=== PATIENT | female | born 1935 | race Caucasian/White ===

== ENCOUNTER 2017-08-23 09:23 | Outpatient (RCR) | payer SELFPAY | END 2017-08-25 | disposition home or self-care (01) | LOC: CR3 09:23 | PROVIDERS: ATTEND Physician Assistant | DX: Z29.8 Encounter for other specified prophylactic measures (principal) ==

== ENCOUNTER 2017-09-23 06:00 | Outpatient (RCR) | payer MEDICARE | END 2017-09-25 | disposition home or self-care (01) | LOC: CR3 06:00 | PROVIDERS: ATTEND Physician Assistant | DX: Z29.8 Encounter for other specified prophylactic measures (principal) ==

== ENCOUNTER 2017-10-11 10:46 | Outpatient (RCR) | payer MEDICARE ==
[2017-10-16] MEDS ORDERED: ASPI-586 PO (21:11)
[2017-10-16] MEDS ORDERED: LOSA100T28 PO (21:11)
[2017-10-17] MEDS ORDERED: APIX5TAB PO (10:06)
[2017-10-18] MEDS ORDERED: DILT120C63 PO (08:25)
[2017-10-18] MEDS ORDERED: FURO20TA4 PO (10:08)
[2017-10-18] MEDS ORDERED: VIT1TABL82 PO (10:12)
[2017-10-18] MEDS ORDERED: NFBIOT1000 PO (10:12)
[2017-10-18] MEDS ORDERED: CALC-654 PO (10:12)
[2017-10-18] MEDS ORDERED: OMG1KC PO (10:12)
[2017-10-18] MEDS ORDERED: MAGN400T39 PO (10:12)
== END 2017-10-27 | disposition home or self-care (01) ==
LOC: CR3 10:46
PROVIDERS: ATTEND Physician Assistant
DX: Z29.8 Encounter for other specified prophylactic measures (principal)

== ENCOUNTER 2017-10-16 17:30 | Inpatient (IN) | payer MEDICARE ==
[~2017-10-16] VITALS: Ht 160 cm; Wt 66.7 kg
[2017-10-16] VITALS (14 sets, daily range): BP systolic 132–201; BP diastolic 56–106
[2017-10-16] MEDS ORDERED: NS IV 1000 ML 1,000 ML ONE (17:45)
[2017-10-16] MEDS ORDERED: ASPIRIN 81 MG CHEW (CHILDREN'S ASA) ONE (17:45)
[2017-10-16 17:56] LABS: BASOPHILS # (AUTO) 0.1 10^3/uL (0.0-0.1); BASOPHILS % (AUTO) 1 % (0-10); EOSINOPHILS # (AUTO) 0.2 10^3/uL (0.0-0.3); EOSINOPHILS % (AUTO) 3 % (0-10); HEMATOCRIT 41 % (35-52); HEMOGLOBIN 13.7 G/DL (11.5-16.0); LYMPHOCYTES # (AUTO) 3.4 X 10^3 (1.0-4.0); LYMPHOCYTES % (AUTO) 37 % (12-44); MEAN CORPUSCULAR HEMOGLOBIN 30 PG (25-34); MEAN CORPUSCULAR HGB CONC 33 G/DL (32-36); MEAN CORPUSCULAR VOLUME 89 FL (80-99); MEAN PLATELET VOLUME 10.3 FL (7.4-10.4); MONOCYTES # (AUTO) 1.6 X 10^3 (0.0-1.0); MONOCYTES % (AUTO) 17 % (0-12); NEUTROPHILS % (AUTO) 43 % (42-75); PLATELET COUNT 301 10^3/uL (130-400); RED BLOOD COUNT 4.59 10^6/uL (4.35-5.85); RED CELL DISTRIBUTION WIDTH 14.4 % (10.0-14.5); WHITE BLOOD COUNT 9.3 10^3/uL (4.3-11.0)
--- NOTE | 2017-10-16 17:57 | ED Cardiac General ---
History of Present Illness General Chief Complaint: Cardiac/General Problems Stated Complaint: HEART RATE RAPID Source: patient Exam Limitations: no limitations History of Present Illness Date Seen by Provider: Oct 16, 2017 Time Seen by Provider: 17:46 Initial Comments Patient presents to the ER with a rapid heart rate no history of atrial fibrillation and not on blood thinners. She's not having any chest pain but more shortness of breath. This started this morning and so she sat down to rest but it didn't go away. She called her neighbor came over and checked her blood pressure and heart rate and found her heart rate to be high in the 1:30 to 140 range and recommend she go to the ER. They came by private conveyance. She does not have a history of coronary artery disease. She says her doctor Dr. Mendez , cardiology at [facility] has insisted she get a pacemaker but she is resistant doing this because she doesn't want to do the procedure. No history of stents, CABG, coronary artery disease. She is taking her other medications routinely. Allergies and Home Medications Allergies Coded Allergies: No Known Drug Allergies (Unverified , 10/16/17) Patient Home Medication List Home Medication List Reviewed: Yes Review of Systems Constitutional: No chills, No diaphoresis EENTM: No Blurred Vision, No Double Vision Respiratory: Denies Cough, Denies Shortness of Air Cardiovascular: Denies Chest Pain, Denies Edema; Irregular Heart Rate, Palpitations; Denies Syncope Gastrointestinal: Denies Abdomen Distended, Denies Abdominal Pain, Denies Constipated, Denies Diarrhea, Denies Nausea Genitourinary: Denies Burning, Denies Discharge Musculoskeletal: No back pain, No joint pain Skin: No pruritus, No rash Psychiatric/Neurological: Denies Headache, Denies Numbness, Denies Paresthesia Past Mkuxqnk-Cbtnwm-Whtzvv Hx Patient Social History Alcohol Use: Denies Use Recreational Drug Use: No Smoking Status: Never a Smoker Recent Foreign Travel: No Contact w/Someone Who Travel: No Physical Exam Vital Signs Capillary Refill : Height, Weight, BMI Height: ', " Weight: lbs oz, kg Method: ,BMI General Appearance: WD/WN, Mild Distress HEENT: PERRL/EOMI, Normal ENT Inspection, Pharynx Normal, Moist Mucous Membranes Neck: Full Range of Motion, Non Tender, Supple Respiratory: Chest Non Tender, Lungs Clear, Normal Breath Sounds, No Accessory Muscle Use, No Respiratory Distress Cardiovascular: No Edema, No Murmur, Normal Peripheral Pulses, Irregularly Irregular Gastrointestinal: Non Tender, Soft Neurologic/Psychiatric: Alert, Oriented x3 Skin: Normal Color, Warm/Dry Progress/Results/Core Measures Results/Orders Lab Results Laboratory Tests Test 10/16/17 17:42 Range/Units White Blood Count 9.3 4.3-11.0 10^3/uL Red Blood Count 4.59 4.35-5.85 10^6/uL Hemoglobin 13.7 11.5-16.0 G/DL Hematocrit 41 35-52 % Mean Corpuscular Volume 89 80-99 FL Mean Corpuscular Hemoglobin 30 25-34 PG Mean Corpuscular Hemoglobin Concent 33 32-36 G/DL Red Cell Distribution Width 14.4 10.0-14.5 % Platelet Count 301 130-400 10^3/uL Mean Platelet Volume 10.3 7.4-10.4 FL Neutrophils (%) (Auto) 43 42-75 % Lymphocytes (%) (Auto) 37 12-44 % Monocytes (%) (Auto) 17 H 0-12 % Eosinophils (%) (Auto) 3 0-10 % Basophils (%) (Auto) 1 0-10 % Neutrophils # (Auto) 4.0 1.8-7.8 X 10^3 Lymphocytes # (Auto) 3.4 1.0-4.0 X 10^3 Monocytes # (Auto) 1.6 H 0.0-1.0 X 10^3 Eosinophils # (Auto) 0.2 0.0-0.3 10^3/uL Basophils # (Auto) 0.1 0.0-0.1 10^3/uL Prothrombin Time 13.7 12.2-14.7 SEC INR Comment 1.1 0.8-1.4 Activated Partial Thromboplast Time 28 24-35 SEC Sodium Level 143 135-145 MMOL/L Potassium Level 4.0 3.6-5.0 MMOL/L Chloride Level 111 H 98-107 MMOL/L Carbon Dioxide Level 23 21-32 MMOL/L Anion Gap 9 5-14 MMOL/L Blood Urea Nitrogen 16 7-18 MG/DL Creatinine 1.16 0.60-1.30 MG/DL Estimat Glomerular Filtration Rate 45 BUN/Creatinine Ratio 14 Glucose Level 99 70-105 MG/DL Calcium Level 9.6 8.5-10.1 MG/DL Magnesium Level 2.1 1.8-2.4 MG/DL Total Bilirubin 0.5 0.1-1.0 MG/DL Aspartate Amino Transf (AST/SGOT) 22 5-34 U/L Alanine Aminotransferase (ALT/SGPT) 20 0-55 U/L Alkaline Phosphatase 50 40-136 U/L Myoglobin 110.9 H 10.0-92.0 NG/ML Troponin I < 0.30 <0.30 NG/ML B-Type Natriuretic Peptide 308.8 H <100.0 PG/ML Total Protein 6.9 6.4-8.2 GM/DL Albumin 3.9 3.2-4.5 GM/DL My Orders Orders - PIPO NOLAN Cbc With Automated Diff (10/16/17 17:45) Magnesium (10/16/17 17:45) Chest 1 View, Ap/Pa Only (10/16/17 17:45) Cardiac Profile 1 (10/16/17 17:45) Comprehensive Metabolic Panel (10/16/17 17:45) Myoglobin Serum (10/16/17 17:45) Protime With Inr (10/16/17 17:45) Partial Thromboplastin Time (10/16/17 17:45) O2 (10/16/17 17:45) Monitor-Rhythm Ecg Trace Only (10/16/17 17:45) Lipid Panel (10/17/17 06:00) Saline Lock/Iv-Start (10/16/17 17:45) BNP (10/16/17 17:45) Saline Lock/Iv-Start (10/16/17 17:45) Aspirin Chewable Tablet (Baby Aspirin Ch (10/16/17 17:45) Ns Iv 1000 Ml (Sodium Chloride 0.9%) (10/16/17 17:45) Amiodarone For Bolus (Cordarone Bolus) (10/16/17 18:00) Diltiazem Injection (Cardizem Injection) (10/16/17 18:00) Amiodarone For Bolus (Cordarone Bolus) (10/16/17 18:02) D5w 100 Ml Ivpb (Dextrose 5% Water Iv So (10/16/17 18:04) Amiodarone Injection (Cordarone Injectio (10/16/17 18:30) D5w 100 Ml Ivpb (De... W/Diltiazem Injec (10/16/17 18:30) Medications Given in ED Current Medications Medications Dose Ordered Sig/Maude Route Start Time Stop Time Status Last Admin Dose Admin Amiodarone HCl 150 mg/Dextrose 103 ml @ 600 mls/hr ONCE ONCE IV 10/16/17 18:00 10/16/17 18:10 DC 10/16/17 18:12 600 MLS/HR Aspirin 81 mg STK-MED ONCE .ROUTE 10/16/17 17:45 10/16/17 17:47 DC 10/16/17 17:47 81 MG Diltiazem HCl 10 mg ONCE ONCE IVP 10/16/17 18:00 10/16/17 18:01 DC 10/16/17 18:08 10 MG Sodium Chloride 1,000 ml @ ud STK-MED ONCE .ROUTE 10/16/17 17:45 10/16/17 17:47 DC 10/16/17 17:46 1,000 MLS/HR Progress Progress Note : Time: 18:23 Progress Note Suspect new onset A. fib with rapid ventricular response and the widened QRS would be secondary to her stated known left bundle-branch block. We'll consult with cardiology and form a plan. The patient stable with a good blood pressure at this time no chest pain. Initial ECG Impression Date: Oct 16, 2017 Initial ECG Impression Time: 17:39 Initial ECG Rate: 131 Initial ECG Rhythm: A Fib/Flutter Initial ECG Intervals: QT (520) Initial ECG Impression: Atrial Fibrillation w/RVR Initial ECG Comparisson: No Previous ECG Available Comment Left bundle branch block with what we suspect is atrial fibrillation with rapid ventricular response. EKG : EKG Time: 18:28 Rate: 108 Rhythm: A Fib/Flutter Intervals: QT (531) ECG Comparisson: Changed ECG Impression: Atrial Fibrillation Comment Atrial flutter with left bundle branch block. Diagnostic Imaging Diagonstic Imaging: Xray Plain Films/CT/US/NM/MRI: chest (1v) Comments NAME: [facility] REC#: [id number] PHYSICIAN: PIPO NOLAN MD CC: RAÚL BENITEZ MD; PIPO NOLAN Page 1 of 1 RADIOLOGY REPORT VIA [facility], [facility]. [place], [place] CC: RAÚL BENITEZ MD; PIPO NOLAN Page 1 of 1 RADIOLOGY REPORT NAME: [facility] REC#: [id number] PT STATUS: REG ER : 1935 PHYSICIAN: PIPO NOLAN MD ADMIT DATE: 10/16/17/ER Signed Date of Exam: 10/16/17 CHEST 1 VIEW, AP/PA ONLY INDICATION: Hypertension. EXAMINATION: PA chest was obtained at 5:59 p.m. FINDINGS: Heart is mildly enlarged. There is mild central vascular prominence. There are chronic appearing increased basilar markings. There is no acute consolidation, pneumothorax or pleural fluid. IMPRESSION: Mild cardiomegaly and central vascular prominence. Chronic appearing increased basilar markings. No acute consolidation or pleural fluid. Dictated by: Dictated on workstation # [id number] Dict: 10/16/171804 Trans: 10/16/171807 Interpreted by: RAÚL BENITEZ MD Electronically signed by: RAÚL BENITEZ MD 10/16/171807 Reviewed: Reviewed by Me Consults : Consulting Physician: Chris KC MD Consults Notes Discussed case EKG and findings and he agrees this is probably a new onset atrial fibrillation with rapid ventricular response and that we should do amiodarone bolus and a bolus of Cardizem. Then start him on the drips for both and if the patient's rate slows down and they are still a wide QRS than this is most likely atrial fibrillation with rapid ventricular response. If They do not slow down and we should suspect a V. tach. He wants us to have paddles ready case the patient becomes unstable. They be happy to consult if will have medicine admit the patient. He also recommends Eliquis. Critical Care Note Critical Care Start Time: 17:30 Stop Time: 18:30 Total Time (minutes) 60 Progress Patient was brought and with no history of atrial fibrillation or suggestion but she does have a rapid rate in the 05/12/39 range that your regular and with wide QRS complexes. We also with cardiology to make sure that the left bundle branch block would be reasonable explanation for the wide QRS complexes and they agreed and gave us a plan to start amiodarone drip and Cardizem drip after giving him boluses of each appropriately. We then developed a plan that we would keep the patient and the ER until he got her down her reasonable rate in the 80s to 90s heart rate before sending her up to the ICU on the drips. Departure Communication (Admissions) Time/Spoke to Admitting Phy: 18:56 Dr. Luther discussed case lab EKG imaging and findings and he'll see the patient. Time/Spoke to Consulting Phy: 18:00 Discussed case lab EKG imaging with Dr. Kc and he'll see the patient. He recommends in addition to adjusting her Cardizem up he would also given a one- time dose of Lasix 20 mg. Impression Primary Impression: Atrial fibrillation with rapid ventricular response Disposition: ADMITTED INPATIENT Condition: Improved Admissions Decision to Admit Reason: Admit from ER (General) Decision to Admit/Date: Oct 16, 2017 Time/Decision to Admit Time: 18:55 Departure-Patient Inst. Referrals: NO,LOCAL PHYSICIAN (PCP/Family) Primary Care Physician PIPO NOLAN Oct 16, 2017 17:57
[2017-10-16] MEDS ORDERED: DILTIAZEM 25 MG/5 ML INJ (CARDIZEM) VIAL IVP ONE (18:00)
[2017-10-16] MEDS ORDERED: AMIODARONE FOR BOLUS 150 MG in D5W 100 ML IVPB 100 ML IV ONE (18:00)
[2017-10-16] MEDS ORDERED: AMIODARONE 150 MG/3 ML (CORDARONE) AMP IV ONE (18:02)
[2017-10-16] MEDS ORDERED: D5W 100 ML IVPB 100 ML IV ONE (18:04)
--- NOTE | 2017-10-16 18:08 | Diagnostic Imaging Report ---
INDICATION: Hypertension. EXAMINATION: PA chest was obtained at 5:59 p.m. FINDINGS: Heart is mildly enlarged. There is mild central vascular prominence. There are chronic appearing increased basilar markings. There is no acute consolidation, pneumothorax or pleural fluid. IMPRESSION: Mild cardiomegaly and central vascular prominence. Chronic appearing increased basilar markings. No acute consolidation or pleural fluid. Dictated by: Dictated on workstation # [id number]
[2017-10-16 18:14] LABS: ALANINE AMINOTRANSFERASE 20 U/L (0-55); ALBUMIN 3.9 GM/DL (3.2-4.5); ALKALINE PHOSPHATASE 50 U/L (40-136); BILIRUBIN,TOTAL 0.5 MG/DL (0.1-1.0); BUN/CREATININE RATIO 14; CALCIUM 9.6 MG/DL (8.5-10.1); CARBON DIOXIDE 23 MMOL/L (21-32); CHLORIDE 111 MMOL/L (98-107); CREATININE SERUM 1.16 MG/DL (0.60-1.30); GFR ESTIMATED 45; GLUCOSE 99 MG/DL (70-105); MAGNESIUM 2.1 MG/DL (1.8-2.4); SODIUM 143 MMOL/L (135-145); TOTAL PROTEIN 6.9 GM/DL (6.4-8.2)
[2017-10-16 18:16] LABS: INR 1.1 (0.8-1.4); PROTHROMBIN TIME PATIENT 13.7 SEC (12.2-14.7)
[2017-10-16 18:21] LABS: MYOGLOBIN SERUM 110.9 NG/ML (10.0-92.0)
[2017-10-16] MEDS ORDERED: AMIODARONE INJECTION 450 MG in D5W IV SOLUTION (EXCEL) 250 ML IV SCH (18:30)
[2017-10-16] MEDS: DILTIAZEM INJECTION 125 MG in D5W 100 ML IVPB 100 ML IV SCH (18:45)
[2017-10-16] MEDS ORDERED: FUROSEMIDE 40 MG/4 ML INJ (LASIX) IVP ONE (19:15)
[2017-10-16] MEDS ORDERED: ASPI-586 PO (21:11)
[2017-10-16] MEDS ORDERED: LOSA100T28 PO (21:11)
[2017-10-16] MEDS: APIXABAN 5 MG (ELIQUIS) TABLET PO SCH (22:24)
[2017-10-16] MEDS: hydrALAZINE (APESOLINE) 20 MG/ML VIAL IV PRN (22:24)
[2017-10-17] VITALS (45 sets, daily range): BP systolic 119–189; BP diastolic 40–79
[2017-10-17] MEDS: hydrALAZINE (APESOLINE) 20 MG/ML VIAL IV PRN ×3 (02:45→15:40)
[2017-10-17 04:02] LABS: BASOPHILS # (AUTO) 0.1 10^3/uL (0.0-0.1); BASOPHILS % (AUTO) 1 % (0-10); EOSINOPHILS # (AUTO) 0.2 10^3/uL (0.0-0.3); EOSINOPHILS % (AUTO) 2 % (0-10); HEMATOCRIT 38 % (35-52); HEMOGLOBIN 12.8 G/DL (11.5-16.0); LYMPHOCYTES % (AUTO) 26 % (12-44); MEAN CORPUSCULAR HEMOGLOBIN 30 PG (25-34); MEAN CORPUSCULAR HGB CONC 34 G/DL (32-36); MEAN CORPUSCULAR VOLUME 90 FL (80-99); MEAN PLATELET VOLUME 10.9 FL (7.4-10.4); MONOCYTES % (AUTO) 13 % (0-12); NEUTROPHILS # (AUTO) 4.5 X 10^3 (1.8-7.8); NEUTROPHILS % (AUTO) 58 % (42-75); PLATELET COUNT 258 10^3/uL (130-400); RED BLOOD COUNT 4.26 10^6/uL (4.35-5.85); RED CELL DISTRIBUTION WIDTH 14.3 % (10.0-14.5); WHITE BLOOD COUNT 7.7 10^3/uL (4.3-11.0)
[2017-10-17 04:26] LABS: BUN/CREATININE RATIO 15; CALCIUM 8.9 MG/DL (8.5-10.1); CARBON DIOXIDE 24 MMOL/L (21-32); CHLORIDE 110 MMOL/L (98-107); CREATININE SERUM 0.97 MG/DL (0.60-1.30); GFR ESTIMATED 55; GLUCOSE 101 MG/DL (70-105); MAGNESIUM 1.9 MG/DL (1.8-2.4); PHOSPHORUS 3.3 MG/DL (2.3-4.7); POTASSIUM 3.6 MMOL/L (3.6-5.0); SODIUM 142 MMOL/L (135-145)
[2017-10-17 04:28] LABS: CHOLESTEROL 188 MG/DL (< 200); HDL CHOLESTEROL 53 MG/DL (40-60); TRIGLYCERIDES 50 MG/DL (<150); VLDL CHOLESTEROL 10 MG/DL (5-40)
[2017-10-17] MEDS: MAGNESIUM 1 GM/100 ML IVPB 100 ML IV SCH (04:40)
[2017-10-17] MEDS: POTASSIUM CL 10MEQ/50ML IVPB 50 ML IV SCH (04:40)
[2017-10-17] MEDS: KCL 20 MEQ TAB (K-DUR) PO SCH (04:40)
--- NOTE | 2017-10-17 06:12 | Pulmonary Consultation ---
History of Present Illness History of Present Illness Date of Consultation 10/17/17 06:04 Time Seen by Provider: 06:05 Date of Admission History of Present Illness 82yo with hx of of Afib and LBBB presented to ED secondary to palpitations and was found to be in Afib RVR. Denied CP and SOB. She is known to Dr. Lucio ( Cardiology). After admission to ICU patient became bradycardic in the 40'son amiodarone gtt and Cardizem gtt. Both were d/C'd and HR is now improving. PT has been hypertensive most of the night. I am consulted for ICU management. Allergies and Home Medications Allergies Coded Allergies: No Known Drug Allergies (Unverified , 10/16/17) Home Medications Aspirin 81 Mg Tablet.dr, 81 MG PO UD, (Reported) Past Sldyhja-Iyhlpo-Atgquw Hx Patient Social History Alcohol Use: Denies Use Recreational Drug Use: No Smoking Status: Never a Smoker 2nd Hand Smoke Exposure: No Recent Foreign Travel: No Contact w/Someone Who Travel: No Recent Infectious Disease Expo: No Recent Hopitalizations: No Physical Abuse: No Sexual Abuse: No Past Medical History Surgeries: Yes (BUNION SX) Hysterectomy Respiratory: No Cardiac: Yes Hypertension Neurological: No Sexually Transmitted Disease: No HIV/AIDS: No Genitourinary: No Gastrointestinal: No Musculoskeletal: Yes Arthritis Endocrine: No HEENT: Yes Cataract Hearing Impairment: Hard of Hearing, Bilateral Hearing Aide Cancer: No Psychosocial: No Nursing Suicide Risk Score: 0 Integumentary: No Blood Disorders: No Adverse Reaction/Blood Tranf: No Review of Systems Time Seen by Provider: 06:14 Constitutional: Weakness, Malaise; No: Fever, Chills, Sweats, Other Eyes: No: Pain, Vision change, Conjunctivae inflammation, Eyelid inflammation, Other, Redness ENT: No: Ear pain, Ear discharge, Nose pain, Nose discharge, Nose congestion, Mouth pain, Mouth swelling, Throat pain, Throat swelling, Other Respiratory: No: Cough, Dry, Shortness of breath, SOB with excertion, Wheezing , Hemoptysis, Pleuritic Pain, Sputum, Wheezing, Other Cardiovascular: Palpitations, Lt Headedness; No: Chest Pain, Orthopnea, Paroxysmal Noc. Dyspnea, Edema, Other Exam Exam Vital Signs Date Time Temp Pulse Resp B/P (MAP) Pulse Ox O2 Delivery O2 Flow Rate FiO2 7/8/18 05:00 62 156/70 (98) 97 Nasal Cannula 2.00 10/17/17 04:45 64 156/79 (104) 96 Nasal Cannula 2.00 10/17/17 04:30 63 152/68 (96) 97 Nasal Cannula 2.00 10/17/17 04:15 65 144/67 (92) 96 Nasal Cannula 2.00 10/17/17 04:00 Nasal Cannula 2.00 10/17/17 04:00 97.9 10/17/17 04:00 65 148/67 (94) 97 Nasal Cannula 2.00 10/17/17 03:45 68 146/63 (90) 96 Nasal Cannula 2.00 10/17/17 03:30 68 145/63 (90) 97 Nasal Cannula 2.00 10/17/17 03:15 64 128/56 (80) 96 Nasal Cannula 2.00 10/17/17 03:00 65 136/58 (84) 96 Nasal Cannula 2.00 10/17/17 02:45 61 165/77 (106) 97 Nasal Cannula 2.00 10/17/17 02:30 61 164/79 (107) 97 Nasal Cannula 2.00 10/17/17 02:15 64 158/70 (99) 97 Nasal Cannula 2.00 10/17/17 02:00 64 162/72 (102) 97 Nasal Cannula 2.00 10/17/17 01:45 61 155/74 (101) 97 Nasal Cannula 2.00 10/17/17 01:30 64 161/73 (102) 99 Nasal Cannula 2.00 10/17/17 01:15 66 174/78 (110) 98 Nasal Cannula 2.00 10/17/17 01:00 61 135/62 (86) 91 Room Air 10/17/17 01:00 61 10/17/17 00:45 43 120/52 (74) 91 Room Air 10/17/17 00:30 44 122/61 (81) 91 Room Air 10/17/17 00:15 43 123/60 (81) 91 Room Air 10/17/17 00:00 94 Room Air 10/17/17 00:00 98.1 48 158/64 (95) 93 Room Air 10/16/17 23:45 45 148/56 (86) 94 Room Air 10/16/17 23:30 48 146/59 (88) 91 Room Air 10/16/17 23:15 51 151/72 (98) 95 Room Air 10/16/17 23:00 68 182/73 (109) 96 Room Air 10/16/17 22:45 67 16 177/80 (112) 96 Room Air 10/16/17 22:30 77 16 190/95 (126) 95 Room Air 10/16/17 22:15 47 16 192/98 (129) 96 Room Air 10/16/17 22:00 46 16 184/86 (118) 95 Room Air 10/16/17 21:47 Room Air 10/16/17 21:45 44 16 184/87 (119) 96 Room Air 10/16/17 21:30 49 16 178/82 (114) 96 Room Air 10/16/17 21:15 43 16 201/90 (127) 95 Room Air 10/16/17 21:00 67 16 95 Room Air 10/16/17 20:45 48 16 178/106 (130) 94 Room Air 10/16/17 20:30 49 16 177/101 (126) 93 Room Air 10/16/17 20:20 97.6 125 16 132/90 (104) 94 Room Air 10/16/17 20:08 104 10/16/17 19:45 98.4 123 15 189/118 95 Room Air 10/16/17 17:35 97.6 134 16 187/124 (145) Room Air I & O 10/17/17 07:00 Intake Total 1700 ml Output Total 1300 ml Balance 400 ml PULEXAM Height: 5', 3.00" Weight: 148lbs 0.0oz, 67.260115bt Method:Stated ,26.6BMI General Appearance: WD/WN, Mild Distress HEENT: PERRL/EOMI, Normal ENT Inspection, Pharynx Normal, Moist Mucous Membranes Neck: Full Range of Motion, Non Tender, Supple Respiratory: Chest Non Tender, Lungs Clear, Normal Breath Sounds, No Accessory Muscle Use, No Respiratory Distress Cardiovascular: No Edema, No Murmur, Normal Peripheral Pulses, Irregularly Irregular Capillary Refill: Less Than 3 Seconds Neurologic/Psychiatric: Alert, Oriented x3 Skin: Normal Color, Warm/Dry Results Lab Laboratory Tests 10/16/17 17:42 10/17/17 03:25 Assessment/Plan Assessment/Plan Afib RVR -Cardizem and amio stopped secondary to bradycardia -Cardiology consulted -Echo is pending -Eliquis HTN - Continue to monitor ANDERSON GLASER DO Oct 17, 2017 06:12
[2017-10-17] MEDS: LOSARTAN 100 MG (COZAAR) TABLET PO SCH (07:55)
[2017-10-17] MEDS: ASPIRIN 81 MG CHEW (CHILDREN'S ASA) PO SCH (07:55)
[2017-10-17] MEDS: APIXABAN 5 MG (ELIQUIS) TABLET PO SCH ×2 (07:55→20:24)
[2017-10-17] MEDS ORDERED: KCL 20 MEQ TAB (K-DUR) PO ONE (09:00)
--- NOTE | 2017-10-17 09:34 | Diagnostic Imaging Report ---
EXAM: Portable erect AP chest at 3:19 p.m. INDICATION: Dyspnea FINDINGS: The cardiomegaly and the coarse interstitial densities in the right infrahilar region seen on the prior exam of 10/16/2017 are again evident and no different. There may be a small amount of fluid in the right lung base, as well. The lungs are otherwise generally clear. The mediastinum is not widened. The osseous structures are intact. IMPRESSION: Stable chest. There has been no adverse change since the prior exam. A follow-up study would be recommended for continued evaluation. Report Dictated by: Dictated on workstation # [id number]
[2017-10-17] MEDS ORDERED: APIX5TAB PO (10:06)
--- NOTE | 2017-10-17 10:16 | Short Stay Summary-Hospitalist ---
History of Present Illness HPI/Chief Complaint Mrs. 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 She has a history of hypertension and has a home blood pressure cuff. Her blood pressure was reportedly normal however she noted that her heart rate was around 110. She felt there was an error with her machine so she called his friend who noted heart rates in the 130 range prompting her to come to the emergency room. There she was noted to be in atrial fibrillation with ventricular response around 130 be per minute range. She denied chest discomfort or shortness of breath. She did have some mild neck discomfort posteriorly and also denied diaphoresis or nausea. She is not aware of any documented past diagnosis of atrial fibrillation. She did have a similar sensation at night about a week ago she was able to fall asleep with resolution of palpitations the following morning. She is a little vague on her recollection but it at one point sound as though they were considering valvular surgery for a reportedly leaking valve however she underwent transesophageal echo cardiography and it was felt not to be significant enough to warrant surgery. She is independent denying dyspnea at rest or with exertion. She occasionally sees Dr. 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 Date Seen 10/17/17 Time Seen by Provider: 08:00 Attending Physician Alex Luther MD PCP No,Local Physician Referring Physician Chris KC MD Date of Admission Oct 16, 2017 at 18:30 Home Medications & Allergies Home Medications Reviewed patient Home Medication Reconciliation performed by pharmacy medication reconciliations central office technician and/or nursing. Patients Allergies have been reviewed. Allergies Allergies Coded Allergies No Known Drug Allergies (Unverified10/16/17) Past Iitmiew-Crmfau-Biebmi Hx Past Med/Social Hx: Reviewed and Corrections made Patient Social History Alcohol Use: Denies Use Recreational Drug Use: No Smoking Status: Never a Smoker 2nd Hand Smoke Exposure: No Physical Abuse Screen: No Sexual Abuse: No Recent Foreign Travel: No Contact w/other who traveled: No Recent Hopitalizations: No Recent Infectious Disease Expo: No Past Medical History Surgeries: Hysterectomy Cardiac: Hypertension Sexually Transmitted Disease: No HIV/AIDS: No Musculoskeletal: Arthritis HEENT: Cataract Hearing Impairment: Hard of Hearing, Bilateral Hearing Aide History of Blood Disorders: No Adverse Reaction to Blood Bosch: No Review of Systems Constitutional: no symptoms reported, see HPI; No chills, No diaphoresis, No dizziness, No fever, No malaise, No weakness Respiratory: no symptoms reported, see HPI; No cough, No dyspnea on exertion, No hemoptysis, No orthopnea, No phlegm, No short of breath Cardiovascular: see HPI; No chest pain, No edema, No Hx of Intervention; palpitations; No syncope; vascular heart diseas; No other Physical Exam Physical Exam Vital Signs Vital Signs - First Documented 10/16/17 10/16/17 10/17/17 17:35 19:45 01:15 Temp 97.6 Pulse 134 Resp 16 B/P (MAP) 187/124 (145) Pulse Ox 95 O2 Delivery Room Air O2 Flow Rate 2.00 Capillary Refill : Less Than 3 Seconds Height, Weight, BMI Height: 5', 3.00" Weight: 148lbs 0.0oz, 67.850600cn Method:Stated ,26.6BMI General Appearance: No Apparent Distress, WD/WN HEENT: PERRL/EOMI Neck: Full Range of Motion, Normal Inspection, Non Tender, Supple, Carotid Bruit Respiratory: Chest Non Tender, Lungs Clear, Normal Breath Sounds, No Accessory Muscle Use, No Respiratory Distress Cardiovascular: Regular Rate, Rhythm (With frequent prematurity), No Edema, No Gallop, No JVD, Normal Peripheral Pulses, Other (Soft 1 to 2/6 systolic ejection murmur heard throughout precordial auscultation. No axillary radiation appreciated) Gastrointestinal: Normal Bowel Sounds, No Organomegaly, No Pulsatile Mass, Non Tender, Soft Extremity: Normal Capillary Refill, Normal Inspection, Normal Range of Motion, Non Tender, No Calf Tenderness, No Pedal Edema Neurologic/Psychiatric: Alert, Oriented x3, No Motor/Sensory Deficits, Normal Mood/Affect Results Results/Procedures Labs Laboratory Tests 10/16/17 17:42 10/17/17 03:25 Patient resulted labs reviewed. Short Stay Diagnosis Discharge Diagnosis-Short Stay Admission Diagnosis 1. Atrial fibrillation with rapid ventricular response 2. Hypertension Final Discharge Diagnosis As per above Conclusion Plan The patient was admitted to the intensive care unit with the initiation of amiodarone drips as well as IV diltiazem. The patient converted to sinus bradycardia with heart rates in the 40s and both drips were discontinued. Currently she is in sinus rhythm with frequent PACs and apparent chronic left bundle branch block per patient's report.Eliquis was initiated at 5 mg twice a day and results of the transthoracic echocardiogram are pending at the time of this dictation. This morning she is a little hypertensive with systolic pressures averaging around 160. She will likely be discharged on diltiazem but I will leave this up to Dr. Kc. Off of both drips her current heart rate has come up to the 70-80 bpm range. Considering her age and that without a clear diagnosis of coronary artery disease I have put a hold on her home aspirin but will defer to Dr. Kc about whether she is discharged on both aspirin and Eliquis. Serial troponin levels were normal and the patient remained asymptomatic from the standpoint of having any symptoms suggesting angina. Clinical Quality Measures DVT/VTE Risk/Contraindication: Risk Factor Score Per Nursin RFS Level Per Nursing on Admit: 2=Moderate ALEX LUTHER MD Oct 17, 2017 10:16
[2017-10-17] MEDS: ACETAMINOPHEN 325 MG TABLET PO PRN ×2 (10:35→16:28)
--- NOTE | 2017-10-17 12:02 | Consultation-Cardiology ---
HPI-Cardiology Cardiology Consultation: Date of Consultation 10/17/17 Date of Admission Attending Physician Abhijeet Lala MD Admitting Physician [place],Local Physician Consulting Physician Chris KC MD HPI: Time Seen by Provider: 12:30 Chief Complaint: Palpitations, hypertension This is a 82-year-old lady who denies any known cardiac history. She does have history of hypertension. She presents with palpitation and weakness. Denies any chest pain. Mild shortness of breath. Elevated heart rate was noted at home and she was brought to the ER. Previous history of bradycardia. Known history of left bundle branch block. In the ER was found to have wide complex tachycardia which was likely atrial fibrillation with left bundle-branch block. She was started on IV amiodarone and Cardizem. Heart rate gradually got better controlled. No history of syncope or near syncope. Review of Systems-Cardiology Review of Systems Constitutional: As described under HPI; No As described under HPI, No no symptoms reported, No chills, No fever, No lightheadedness Eyes: No As described under HPI, No no symptoms reported, No blindness, No blurred vision, No contact lenses, No drainage, No decreased acuity, No foreign body sensation, No pain, No vision change Ears/Nose/Throat: No As described under HPI, No no symptoms reported, No chronic hearing loss, No ear discharge, No ear pain, No nasal drainage, No ulcerations Respiratory: No no symptoms reported; As described under HPI; No As described under HPI, No cough, No orthopnea, No shortness of breath, No SOB with excertion Cardiovascular: No no symptoms reported; As described under HPI; No As described under HPI, No chest pain, No edema; irregular heart rate; No lightheadedness; palpitations Gastrointestinal: No no symptoms reported, No As described under HPI, No abdomen distended, No abdominal pain, No blood streaked bowels, No constipation , No diarrhea, No nausea, No vomiting, No stool coloration changes Genitourinary: No As described under HPI, No burning, No dysuria, No discharge , No frequency, No flank pain, No hematuria, No urgency : Yes : No Musculoskeletal: No no symptoms reported, No As describe under HPI, No back pain, No gout, No joint pain, No joint swelling, No muscle pain, No muscle stiffness, No neck pain, No other Skin: No no symptoms reported, No As described under HPI, No change in color, No change in hair/nails, No dryness, No lesions, No lumps, No rash, No other, No skin related problems, No ulcerations, No rash on exposed areas, No ulcerations on exposed areas Psychiatric/Neurological: No anxiety, No depression, No seizure, No focal weakness, No syncope Hematologic: No bleeding abnormalities [id number] Hx Patient Social History Alcohol Use: Denies Use Recreational Drug Use: No Smoking Status: Never a Smoker 2nd Hand Smoke Exposure: No Recent Foreign Travel: No Recent Infectious Disease Expo: No Hospitalization with Isolation: Denies Physical Abuse Screen: No Sexual Abuse: No Past Medical History PMH As described under Assessment. Allergies and Home Medications Allergies Coded Allergies: No Known Drug Allergies (Unverified , 10/16/17) Home Medications Apixaban 5 Mg Tablet, 5 MG PO BID Prescribed by: ABHIJEET LALA on 10/17/17 1006 Aspirin 81 Mg Tablet., 81 MG PO UD, (Reported) Patient Home Medication List Home Medication List Reviewed: Yes Physical Exam-Cardiology Physical Exam Vital Signs/I&O 10/17/17 10/17/17 10/17/17 10/17/17 01:45 02:00 02:15 02:30 Pulse 61 64 64 61 B/P (MAP) 155/74 (101) 162/72 (102) 158/70 (99) 164/79 (107) Pulse Ox 97 97 97 97 O2 Delivery Nasal Cannula Nasal Cannula Nasal Cannula Nasal Cannula O2 Flow Rate 2.00 2.00 2.00 2.00 10/17/17 10/17/17 10/17/17 10/17/17 02:45 03:00 03:15 03:30 Pulse 61 65 64 68 B/P (MAP) 165/77 (106) 136/58 (84) 128/56 (80) 145/63 (90) Pulse Ox 97 96 96 97 O2 Delivery Nasal Cannula Nasal Cannula Nasal Cannula Nasal Cannula O2 Flow Rate 2.00 2.00 2.00 2.00 10/17/17 10/17/17 10/17/17 10/17/17 03:45 04:00 04:00 04:00 Temp 97.9 Pulse 68 65 B/P (MAP) 146/63 (90) 148/67 (94) Pulse Ox 96 97 O2 Delivery Nasal Cannula Nasal Cannula Nasal Cannula O2 Flow Rate 2.00 2.00 2.00 10/17/17 10/17/17 10/17/17 10/17/17 04:15 04:30 04:45 05:00 Pulse 65 63 64 62 B/P (MAP) 144/67 (92) 152/68 (96) 156/79 (104) 156/70 (98) Pulse Ox 96 97 96 97 O2 Delivery Nasal Cannula Nasal Cannula Nasal Cannula Nasal Cannula O2 Flow Rate 2.00 2.00 2.00 2.00 10/17/17 10/17/17 10/17/17 10/17/17 05:15 05:30 05:45 06:00 Pulse 59 60 59 63 B/P (MAP) 148/66 (93) 148/66 (93) 151/69 (96) 156/71 (99) Pulse Ox 95 96 95 97 O2 Delivery Nasal Cannula Nasal Cannula Nasal Cannula Nasal Cannula O2 Flow Rate 2.00 2.00 2.00 2.00 10/17/17 10/17/17 10/17/17 10/17/17 06:15 06:30 06:45 07:00 Pulse 60 56 55 62 B/P (MAP) 162/72 (102) 143/61 (88) 148/61 (90) Pulse Ox 95 97 96 O2 Delivery Nasal Cannula Nasal Cannula Nasal Cannula O2 Flow Rate 2.00 2.00 2.00 10/17/17 10/17/17 10/17/17 10/17/17 07:00 07:01 08:00 08:00 Pulse 63 68 B/P (MAP) 156/71 (99) 163/70 (101) Pulse Ox 97 97 96 95 O2 Delivery Nasal Cannula Nasal Cannula Room Air Nasal Cannula O2 Flow Rate 2.00 2.00 2.00 10/17/17 10/17/17 10/17/17 10/17/17 09:00 10:00 11:00 12:00 Pulse 57 64 73 B/P (MAP) 150/78 (102) 158/73 (101) Pulse Ox 96 96 95 96 O2 Delivery Nasal Cannula Nasal Cannula Nasal Cannula Room Air O2 Flow Rate 2.00 2.00 2.00 10/17/17 10/17/17 10/17/17 10/17/17 12:00 12:00 13:00 13:00 Temp 99.2 Pulse 71 74 74 B/P (MAP) 179/74 (109) 166/67 (100) Pulse Ox 95 96 O2 Delivery Nasal Cannula Nasal Cannula O2 Flow Rate 2.00 2.00 10/17/17 00:00 Intake Total 1350 ml Output Total 800 ml Balance 550 ml Capillary Refill : Less Than 3 Seconds Constitutional: appears stated age, AAO x 3; No apparent distress; well- developed, well-nourished HEENT: PERRL; No normal ENT inspection, No TMs normal, No pharynx normal, No scleral icterus (R), No scleral icterus (L), No pale conjunctivae (R), No pale conjunctivae (L), No photophobia, No TM abnormal (R), No TM abnormal (L), No pharyngeal erythema, No tonsillar exudate, No other, No discharge, No EOMI; hearing is well preserved; No hard of hearing; oral hygience is good; No ulceration, No xanthelasmas are seen Neck: No non-tender, No full range of motion, No supple, No normal inspection, No carotid bruit, No limited range of motion, No lymphadenopathy (R), No lymphadenopathy (L), No tender lateral, No tender midline, No thyromegaly, No other; carotid pulses are 2 + bilaterally; No with good upstrokes Respiratory: chest is bilaterally symmetric, lungs clear to auscultation Cardiovascular: regular rate-rhythm; No irregularly irregular, No extra beats, No parasternal heave is noted, No JVD, No edema, No bradycardia, No tachycardia , No point of maximal impulse, No cardiac thrills are palpable; S1 and S2; No gallop/S3, No gallop/S4, No diastolic murmur, No systolic murmur, No friction rub, No click, No other Gastrointestinal: No tender, No soft, No round, No distended, No pulsatile mass , No organomegaly, No guarding, No rebound, No tenderness, No hernia, No mass, No audible bowel sounds, No abnormal bowel sounds, No abdominal bruits, No spleenomegaly, No other Rectal: deferred Extremities: No normal range of motion, No non-tender, No normal inspection, No pedal edema, No calf tenderness, No normal capillary refill, No pelvis stable , No calf tenderness, No inflammation, No pedal edema, No slow capillary refill , No swelling, No other, No abrasion, No clubbing, No cyanosis, No ecchymosis, No laceration, No no lower extremity edema bilateral, No significant edema, No tenderness, No wound Neurologic/Psychiatric: no motor/sensory deficits, alert, normal mood/affect, oriented x 3, power is 5/5 both on sides Skin: No normal color, No warm/dry, No cyanosis, No cool, No diaphoresis, No damp, No ecchymosis, No jaundice, No mottled, No pallor, No rash, No tattoos/ piercings, No ulcerations, No rash on exposed areas, No ulcerations on exposed areas, No other Data Review Labs Laboratory Tests 10/16/17 17:42: White Blood Count 9.3, Red Blood Count 4.59, Hemoglobin 13.7, Hematocrit 41, Mean Corpuscular Volume 89, Mean Corpuscular Hemoglobin 30, Mean Corpuscular Hemoglobin Concent 33, Red Cell Distribution Width 14.4, Platelet Count 301, Mean Platelet Volume 10.3, Neutrophils (%) (Auto) 43, Lymphocytes (%) (Auto) 37 , Monocytes (%) (Auto) 17H, Eosinophils (%) (Auto) 3, Basophils (%) (Auto) 1, Neutrophils # (Auto) 4.0, Lymphocytes # (Auto) 3.4, Monocytes # (Auto) 1.6H, Eosinophils # (Auto) 0.2, Basophils # (Auto) 0.1, Prothrombin Time 13.7, INR Comment 1.1, Activated Partial Thromboplast Time 28, Sodium Level 143, Potassium Level 4.0, Chloride Level 111H, Carbon Dioxide Level 23, Anion Gap 9, Blood Urea Nitrogen 16, Creatinine 1.16, Estimat Glomerular Filtration Rate 45, BUN/Creatinine Ratio 14, Glucose Level 99, Calcium Level 9.6, Magnesium Level 2.1, Total Bilirubin 0.5, Aspartate Amino Transf (AST/SGOT) 22, Alanine Aminotransferase (ALT/SGPT) 20, Alkaline Phosphatase 50, Myoglobin 110.9H, Troponin I < 0.30, B-Type Natriuretic Peptide 308.8H, Total Protein 6.9, Albumin 3.9 10/17/17 03:25: White Blood Count 7.7, Red Blood Count 4.26L, Hemoglobin 12.8, Hematocrit 38, Mean Corpuscular Volume 90, Mean Corpuscular Hemoglobin 30, Mean Corpuscular Hemoglobin Concent 34, Red Cell Distribution Width 14.3, Platelet Count 258, Mean Platelet Volume 10.9H, Neutrophils (%) (Auto) 58, Lymphocytes (%) (Auto) 26 , Monocytes (%) (Auto) 13H, Eosinophils (%) (Auto) 2, Basophils (%) (Auto) 1, Neutrophils # (Auto) 4.5, Lymphocytes # (Auto) 2.0, Monocytes # (Auto) 1.0, Eosinophils # (Auto) 0.2, Basophils # (Auto) 0.1, Sodium Level 142, Potassium Level 3.6, Chloride Level 110H, Carbon Dioxide Level 24, Anion Gap 8, Blood Urea Nitrogen 15, Creatinine 0.97, Estimat Glomerular Filtration Rate 55, BUN/ Creatinine Ratio 15, Glucose Level 101, Calcium Level 8.9, Magnesium Level 1.9, Troponin I < 0.30, Phosphorus Level 3.3, Triglycerides Level 50, Cholesterol Level 188, LDL Cholesterol Direct 128, VLDL Cholesterol 10, HDL Cholesterol 53 ECG Impression ECG Initial ECG Impression: Atrial Fibrillation w/RVR A/P-Cardiology Assessment/Admission Diagnosis Atrial fibrillation with rapid ventricular rate, Shortness of breath, Hypertension Plan Patient converted to sinus rhythm in the morning. EKG shows sinus rhythm with prolonged AZ interval with numerous PACs. Amiodarone discontinued. Start by mouth Cardizem. Start Eliquis for oral anticoagulation. CHADSVASC score is 4 due to gender, hypertension and age. Hypertension: Already on losartan 100 mg daily. Start amlodipine 5 mg 1. Cardizem 120 mg and will see the response. Shortness of breath likely diastolic dysfunction. Mild acute diastolic heart failure. Thank you for your consultation. Please call me if you have any questions. Gris Kc MD, FACP, FACC, FSCAI, FHRS, CCDS Interventional Cardiology Cardiac Electrophysiology Vascular Medicine and Endovascular Interventions Clinical Quality Measures DVT/VTE Risk/Contraindication: Risk Factor Score Per Nursin RFS Level Per Nursing on Admit: 2=Moderate Chris KC MD Oct 17, 2017 12:02 pm
[2017-10-17] MEDS ORDERED: amLODIPine 5 MG (NORVASC) TAB PO NR ×2 (13:00→16:45)
[2017-10-17] MEDS: DILTIAZEM 120 MG (CARDIZEM CD) CAP PO SCH (13:25)
[2017-10-17] MEDS: DILTIAZEM INJECTION 125 MG in D5W 100 ML IVPB 100 ML IV SCH (17:50)
[2017-10-17] MEDS ORDERED: hydrALAZINE (APRESOLINE) 25 MG TAB PO ONE (18:15)
[2017-10-17] MEDS ORDERED: hydrALAZINE (APRESOLINE) 25 MG TAB ONE (18:17)
[2017-10-18] VITALS (12 sets, daily range): BP systolic 108–157; BP diastolic 41–70
[2017-10-18 03:48] LABS: BASOPHILS # (AUTO) 0.1 10^3/uL (0.0-0.1); BASOPHILS % (AUTO) 1 % (0-10); EOSINOPHILS # (AUTO) 0.1 10^3/uL (0.0-0.3); EOSINOPHILS % (AUTO) 2 % (0-10); HEMATOCRIT 40 % (35-52); HEMOGLOBIN 13.4 G/DL (11.5-16.0); LYMPHOCYTES # (AUTO) 2.3 X 10^3 (1.0-4.0); LYMPHOCYTES % (AUTO) 28 % (12-44); MEAN CORPUSCULAR HEMOGLOBIN 30 PG (25-34); MEAN CORPUSCULAR HGB CONC 33 G/DL (32-36); MEAN CORPUSCULAR VOLUME 90 FL (80-99); MEAN PLATELET VOLUME 10.1 FL (7.4-10.4); MONOCYTES # (AUTO) 1.2 X 10^3 (0.0-1.0); MONOCYTES % (AUTO) 14 % (0-12); NEUTROPHILS # (AUTO) 4.4 X 10^3 (1.8-7.8); NEUTROPHILS % (AUTO) 55 % (42-75); PLATELET COUNT 294 10^3/uL (130-400); RED BLOOD COUNT 4.47 10^6/uL (4.35-5.85); RED CELL DISTRIBUTION WIDTH 14.6 % (10.0-14.5)
[2017-10-18 04:12] LABS: CALCIUM 9.4 MG/DL (8.5-10.1); CREATININE SERUM 0.96 MG/DL (0.60-1.30); MAGNESIUM 1.8 MG/DL (1.8-2.4); PHOSPHORUS 3.4 MG/DL (2.3-4.7); POTASSIUM 4.1 MMOL/L (3.6-5.0)
[2017-10-18] MEDS: KCL 20 MEQ TAB (K-DUR) PO SCH (04:19)
[2017-10-18] MEDS: MAGNESIUM 1 GM/100 ML IVPB 100 ML IV SCH (04:19)
[2017-10-18] MEDS: POTASSIUM CL 10MEQ/50ML IVPB 50 ML IV SCH (04:19)
--- NOTE | 2017-10-18 05:45 | Pulmonary Progress Note ---
Subjective Time Seen by Provider: 05:44 Subjective/Events-last exam No complications noted. PT appears to be doing better. Exam Exam Vital Signs Date Time Temp Pulse Resp B/P (MAP) Pulse Ox O2 Delivery O2 Flow Rate FiO2 10/18/17 04:00 91 Room Air 10/18/17 04:00 61 145/70 (95) 94 Room Air 10/18/17 03:42 98.2 Room Air 10/18/17 03:00 53 129/46 (73) 93 Room Air 10/18/17 02:00 45 108/46 (66) 92 Room Air 10/18/17 01:00 60 125/56 (79) 91 Room Air 10/18/17 01:00 60 10/18/17 00:00 91 Room Air 10/18/17 00:00 72 157/66 (96) 94 Room Air 10/18/17 00:00 97.4 Room Air 10/17/17 23:00 69 132/58 (82) 93 Room Air 10/17/17 22:00 72 139/62 (87) 93 Room Air 10/17/17 21:00 68 139/55 (83) 91 Room Air 10/17/17 20:00 91 Room Air 10/17/17 20:00 98.4 Room Air 10/17/17 20:00 65 119/40 (66) 91 Room Air 10/17/17 19:00 76 189/74 (112) 95 Room Air 10/17/17 19:00 78 10/17/17 18:12 68 171/70 (103) 96 Room Air 10/17/17 18:00 68 183/76 (111) 93 Room Air 10/17/17 17:00 84 177/69 (105) 96 Room Air 10/17/17 16:00 95 Room Air 10/17/17 16:00 99.2 10/17/17 16:00 75 171/75 (107) 95 Room Air 10/17/17 15:00 68 175/79 (111) 96 Room Air 10/17/17 14:00 69 166/75 (105) 97 Room Air 10/17/17 13:00 74 166/67 (100) 96 Room Air 10/17/17 13:00 74 10/17/17 12:00 71 179/74 (109) 95 Room Air 10/17/17 12:00 99.2 10/17/17 12:00 96 Room Air 10/17/17 11:00 73 158/73 (101) 95 Nasal Cannula 2.00 10/17/17 10:00 64 150/78 (102) 96 Nasal Cannula 2.00 10/17/17 09:00 57 96 Nasal Cannula 2.00 10/17/17 08:00 68 163/70 (101) 95 Nasal Cannula 2.00 10/17/17 08:00 96 Room Air 10/17/17 07:01 97 Nasal Cannula 2.00 10/17/17 07:00 63 156/71 (99) 97 Nasal Cannula 2.00 10/17/17 07:00 62 10/17/17 06:45 55 148/61 (90) 96 Nasal Cannula 2.00 10/17/17 06:30 56 143/61 (88) 97 Nasal Cannula 2.00 10/17/17 06:15 60 162/72 (102) 95 Nasal Cannula 2.00 10/17/17 06:00 63 156/71 (99) 97 Nasal Cannula 2.00 10/17/17 05:45 59 151/69 (96) 95 Nasal Cannula 2.00 I & O 10/18/17 07:00 Intake Total 2040 ml Output Total 1000 ml Balance 1040 ml PULEXAM Height: 5', 3.00" Weight: 148lbs 0.0oz, [id number] Method:Stated ,26.6BMI General Appearance: No Apparent Distress, WD/WN HEENT: PERRL/EOMI Neck: Full Range of Motion, Normal Inspection, Non Tender, Supple, Carotid Bruit Respiratory: Chest Non Tender, Lungs Clear, Normal Breath Sounds, No Accessory Muscle Use, No Respiratory Distress Cardiovascular: Regular Rate, Rhythm (With frequent prematurity), No Edema, No Gallop, No JVD, Normal Peripheral Pulses, Other (Soft 1 to 2/6 systolic ejection murmur heard throughout precordial auscultation. No axillary radiation appreciated) Capillary Refill: Less Than 3 Seconds Extremity: Normal Capillary Refill, Normal Inspection, Normal Range of Motion, Non Tender, No Calf Tenderness, No Pedal Edema Neurologic/Psychiatric: Alert, Oriented x3, No Motor/Sensory Deficits, Normal Mood/Affect Skin: Normal Color, Warm/Dry Results Lab Laboratory Tests 10/16/17 17:42 10/17/17 03:25 10/18/17 03:35 Assessment/Plan Assessment/Plan Afib RVR - Now resolved - now NSR -Cardiology consulted -Echo is pending -Eliquis HTN - Continue to monitor SOB secondary to diastolic dysfunction -Pt is only requiring RA oxygen. PT will probably go home today. IF not she can transfer to [facility]. I am going to sign off please call with any questions. ANDERSON GLASER DO Oct 18, 2017 05:44
[2017-10-18] MEDS: DILTIAZEM 120 MG (CARDIZEM CD) CAP PO SCH (07:49)
[2017-10-18] MEDS: ASPIRIN 81 MG CHEW (CHILDREN'S ASA) PO SCH (07:49)
[2017-10-18] MEDS: APIXABAN 5 MG (ELIQUIS) TABLET PO SCH (07:49)
[2017-10-18] MEDS: LOSARTAN 100 MG (COZAAR) TABLET PO SCH (07:49)
[2017-10-18] MEDS ORDERED: DILT120C63 PO (08:25)
[2017-10-18] MEDS ORDERED: DILTIAZEM 120 MG (CARDIZEM CD) CAP PO SCH (09:00)
--- NOTE | 2017-10-18 09:33 | Diagnostic Imaging Report ---
INDICATION: Atrial fibrillation with rapid ventricular response. Dyspnea. TECHNIQUE: Single view chest at 3:24 AM. CORRELATION STUDY: 10/17/2017. FINDINGS: The heart size is enlarged but stable. The vasculature is generally stable. The lung morales are generally stable. Likely trace effusions. Suggestion of minimal basilar atelectasis. IMPRESSION: Suggestion of chronic type change about the lung morales which are mildly hyperinflated. Minimal basilar atelectasis or less likely infiltrate along with small effusions. Stable heart size and vasculature. Dictated by: Dictated on workstation # [id number]
[2017-10-18] MEDS ORDERED: FURO20TA4 PO (10:08)
[2017-10-18] MEDS ORDERED: NFBIOT1000 PO (10:12)
[2017-10-18] MEDS ORDERED: VIT1TABL82 PO (10:12)
[2017-10-18] MEDS ORDERED: OMG1KC PO (10:12)
[2017-10-18] MEDS ORDERED: MAGN400T39 PO (10:12)
[2017-10-18] MEDS ORDERED: CALC-654 PO (10:12)
--- NOTE | 2017-10-18 10:45 | Cardiology Progress Note ---
Cardiology SOAP Progress Note Subjective: No cardiac symptoms. Blood pressure is much better controlled. Objective: I&O/Vital Signs 10/17/17 10/18/17 10/18/17 10/18/17 23:00 00:00 00:00 00:00 Temp 97.4 Pulse 69 72 B/P (MAP) 132/58 (82) 157/66 (96) Pulse Ox 93 94 91 O2 Delivery Room Air Room Air Room Air Room Air 10/18/17 10/18/17 10/18/17 10/18/17 01:00 01:00 02:00 03:00 Pulse 60 60 45 53 B/P (MAP) 125/56 (79) 108/46 (66) 129/46 (73) Pulse Ox 91 92 93 O2 Delivery Room Air Room Air Room Air 10/18/17 10/18/17 10/18/17 10/18/17 03:42 04:00 04:00 05:00 Temp 98.2 Pulse 61 45 B/P (MAP) 145/70 (95) 125/52 (76) Pulse Ox 94 91 91 O2 Delivery Room Air Room Air Room Air Room Air 10/18/17 10/18/17 10/18/17 10/18/17 06:00 06:43 07:00 07:00 Pulse 64 58 58 Resp 12 B/P (MAP) 143/62 (89) 153/64 (93) Pulse Ox 95 92 O2 Delivery Room Air Nasal Cannula Room Air O2 Flow Rate 2.00 10/18/17 10/18/17 10/18/17 10/18/17 08:00 08:30 09:00 10:00 Pulse 53 52 66 Resp 21 20 21 B/P (MAP) 110/41 (64) 110/41 (64) 149/59 (89) Pulse Ox 95 95 91 93 O2 Delivery Room Air Room Air Room Air Room Air 10/18/17 00:00 Intake Total 1560 ml Output Total 400 ml Balance 1160 ml Weight (Pounds): 147 Weight (Ounces): 0.0 Weight (Calculated Kilograms): [id number] Constitutional: appears stated age, AAO x 3; No apparent distress; well- developed, well-nourished Respiratory: chest is bilaterally symmetric, lungs clear to auscultation Cardiovascular: regular rate-rhythm; No irregularly irregular, No extra beats, No parasternal heave is noted, No JVD, No edema, No bradycardia, No tachycardia , No point of maximal impulse, No cardiac thrills are palpable; S1 and S2; No gallop/S3, No gallop/S4, No diastolic murmur, No systolic murmur, No friction rub, No click, No other Gastrointestional: No tender, No soft, No round, No distended, No pulsatile mass, No organomegaly, No guarding, No rebound, No tenderness, No hernia, No mass, No audible bowel sounds, No abnormal bowel sounds, No abdominal bruits, No spleenomegaly, No other Extremities: No normal range of motion, No non-tender, No normal inspection, No pedal edema, No calf tenderness, No normal capillary refill, No pelvis stable , No calf tenderness, No inflammation, No pedal edema, No slow capillary refill , No swelling, No other, No abrasion, No clubbing, No cyanosis, No ecchymosis, No laceration, No no lower extremity edema bilateral, No significant edema, No tenderness, No wound Neurologic/Psychiatric: no motor/sensory deficits, alert, normal mood/affect, oriented x 3, power is 5/5 both on sides Skin: No normal color, No warm/dry, No cyanosis, No cool, No diaphoresis, No damp, No ecchymosis, No jaundice, No mottled, No pallor, No rash, No tattoos/ piercings, No ulcerations, No rash on exposed areas, No ulcerations on exposed areas, No other Results/Procedures: Labs Laboratory Tests 10/18/17 03:35: White Blood Count 8.0, Red Blood Count 4.47, Hemoglobin 13.4, Hematocrit 40, Mean Corpuscular Volume 90, Mean Corpuscular Hemoglobin 30, Mean Corpuscular Hemoglobin Concent 33, Red Cell Distribution Width 14.6H, Platelet Count 294, Mean Platelet Volume 10.1, Neutrophils (%) (Auto) 55, Lymphocytes (%) (Auto) 28 , Monocytes (%) (Auto) 14H, Eosinophils (%) (Auto) 2, Basophils (%) (Auto) 1, Neutrophils # (Auto) 4.4, Lymphocytes # (Auto) 2.3, Monocytes # (Auto) 1.2H, Eosinophils # (Auto) 0.1, Basophils # (Auto) 0.1, Sodium Level 137, Potassium Level 4.1, Chloride Level 107, Carbon Dioxide Level 22, Anion Gap 8, Blood Urea Nitrogen 11, Creatinine 0.96, Estimat Glomerular Filtration Rate 56, BUN/ Creatinine Ratio 11, Glucose Level 102, Calcium Level 9.4, Phosphorus Level 3.4 , Magnesium Level 1.8 Microbiology 10/16/17 MRSA Screen - Final, Complete MRSA not isolated A/P: Assessment/Dx: Atrial fibrillation with rapid ventricular rate, Shortness of breath, Hypertension Plan: Patient converted to sinus rhythm in the morning. EKG shows sinus rhythm with prolonged DC interval with numerous PACs. Amiodarone discontinued. Start by mouth Cardizem. Start Eliquis for oral anticoagulation. CHADSVASC score is 4 due to gender, hypertension and age. Hypertension: Already on losartan 100 mg daily. Amlodipine 10 mg daily. Cardizem 120 mg CD daily. Patient will be discharged on losartan, amlodipine and Cardizem. Discussed with the patient and family. Shortness of breath likely diastolic dysfunction. Mild acute diastolic heart failure. I will follow-up the patient in one week. Thank you for your consultation. Please call me if you have any questions. Gris Kc MD, FACP, FACC, FSCAI, FHRS, CCDS Interventional Cardiology Cardiac Electrophysiology Vascular Medicine and Endovascular Interventions Chris KC MD Oct 18, 2017 10:45 am
== END 2017-10-18 11:55 | disposition home or self-care (01) | DRG 308 ==
LOC: EDUNIT# 17:30 → ER 17:34 → ICU 18:30
PROVIDERS: ADMIT Internal Medicine; ATTEND Internal Medicine
DX: I48.91 Unspecified atrial fibrillation (principal); I48.92 Unspecified atrial flutter; I44.7 Left bundle-branch block, unspecified; I11.0 Hypertensive heart disease with heart failure; I50.31 Acute diastolic (congestive) heart failure; R00.1 Bradycardia, unspecified; M19.90 Unspecified osteoarthritis, unspecified site; H91.93 Unspecified hearing loss, bilateral; Z97.4 Presence of external hearing-aid
CPT/HCPCS: 36415; 71045; 80048; 80053; 80061; 83735; 83874; 83880; 84100; 84484; 85025; 85610; 85730; 87081; 93005; 93041; 93306; 96361; 96365; 96366; 96367; 96368; 96375

== ENCOUNTER 2017-11-23 06:00 | Outpatient (RCR) | payer MEDICARE ==
[~2017-11-23 06:00] MED LIST: APIX5TAB PO; ASPI-586 PO; CALC-654 PO; DILT120C63 PO; FURO20TA4 PO; LOSA100T28 PO; MAGN400T39 PO; NFBIOT1000 PO; OMG1KC PO; VIT1TABL82 PO
== END 2017-11-28 | disposition home or self-care (01) ==
LOC: CR3 06:00
PROVIDERS: ATTEND Physician Assistant
DX: Z29.8 Encounter for other specified prophylactic measures (principal)

== ENCOUNTER 2018-01-10 09:45 | Outpatient (RCR) | payer MEDICARE ==
[~2018-01-10 09:45] MED LIST changes: -LOSA100T28 PO; +LOSA100T8 PO
== END 2018-01-16 | disposition home or self-care (01) ==
LOC: CR3 09:45
PROVIDERS: ATTEND Physician Assistant
DX: Z29.8 Encounter for other specified prophylactic measures (principal)

== ENCOUNTER → 2018-02-23 | Outpatient (RCR) | payer MEDICARE | END | disposition home or self-care (01) | LOC: CR3 01-24 10:00 | PROVIDERS: ATTEND Physician Assistant | DX: Z01.818 Encounter for other preprocedural examination (principal) ==

== ENCOUNTER → 2020-10-16 | Outpatient (CLI) | payer MEDICARE ==
[~2020-10-16] MED LIST changes: +CATHETER FLUSH 10 ML SYR IV PRN; -DILT120C63 PO; +DILT120C88 PO; +LOSA100T57 PO; -LOSA100T8 PO
[2020-10-16 13:06] VITALS: BP 141/70
--- NOTE | 2020-10-16 14:15 | Cardiology Stress Test Report ---
Stress Test Report Date of Procedure/Referring: Date of Procedure: Oct 16, 2020 PCP Dru Tejeda MD Admitting Physician No,Local Physician Indications: CP Baseline Heart Rate: 65 Baseline Blood Pressure: Blood Pressure Systolic: 141 Blood Pressure Diastolic: 70 Vital Signs Date Time Temp Pulse Resp B/P (MAP) Pulse Ox O2 Delivery O2 Flow Rate FiO2 10/16/20 13:06 76 18 141/70 (93) 96 Room Air Baseline Vital Signs Vital Signs Date Time Temp Pulse Resp B/P (MAP) Pulse Ox O2 Delivery O2 Flow Rate FiO2 10/16/20 13:06 76 18 141/70 (93) 96 Room Air Baseline EKG: Baseline EKG: LBBB Summary: After explaining the procedure and details to the patient, she signed the consent and was brought to the stress nuclear laboratory. Patient had coffee earlier today, was unable to do Lexiscan, decided to proceed with exercise stress test. Patient exercised on standard Iván protocol, EKG, heart rate and blood pressure were monitored continuously, resting and stress doses of radio tracer were injected, imaging was acquired and reviewed in the short axis, horizontal long axis and vertical long axis views Patient was able to exercise for a total of 3 minutes on Iván protocol, METs 4.6 Maximum heart rate 117 Maximum blood pressure 179/67 Stress EKG, Minimal nondiagnostic changes Recovery EKG, Return to baseline TID: 1.1 SSS: 5 SDS: 4 EF: 56 Conclusion: 1. Fair exercise tolerance for 3 minutes on standard Iván protocol, 4.6 METS achieving 87% of maximal expected heart rate 2. Appropriate heart rate and blood pressure response to exercise return to baseline during recovery 3. Baseline atrial fibrillation with left bundle branch block persisted during test 4. Mild decreased uptake at the mid to apical anterolateral wall with subtle reversibility, no significant ischemia or infarction on SPECT images 5. Normal left ventricular size, EF 56% DRU TEJEDA MD Oct 16, 2020 14:15
== END ==
LOC: CARD 11:00
PROVIDERS: ATTEND Internal Medicine Cardiovascular Disease
DX: I08.0 Rheumatic disorders of both mitral and aortic valves (principal); I11.9 Hypertensive heart disease without heart failure; I25.10 Atherosclerotic heart disease of native coronary artery without angina pectoris
CPT/HCPCS: 78452; 93017; 93306; A9502

== ENCOUNTER 2021-05-30 09:01 | Emergency (ER) | payer MEDICARE ==
[~2021-05-30] VITALS: Ht 162.5 cm; Wt 63.5 kg
[~2021-05-30 09:01] MED LIST changes: +ACET-2267 PO; +ALPR0.254 PO; +AMLO-250 PO; +BIOT50002 SL; +CALC-195 PO; -CATHETER FLUSH 10 ML SYR IV PRN; +CEFU250T80 PO; +CHOL200074 PO; +DILT120C85 PO; +LUTE20TA PO; +METO50TA7 PO; +MTP25TSR PO; +ROSU10TA28 PO; +UBID100C17 PO; +VIT1CAPS44 PO
--- NOTE | 2021-05-30 09:25 | ED General ---
General Chief Complaint: General Problems/Pain Stated Complaint: CP,DIZZINESS,MEJIAS Source of Information: Patient Exam Limitations: No Limitations History of Present Illness Date Seen by Provider: May 30, 2021 Time Seen by Provider: 09:03 Initial Comments 85-year-old female with past medical history of A. 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 Started around 4 hours prior to arrival when she woke up this morning. She said when she was lying backwards she just felt more short of breath than usual, this did not change with ambulation. Had some mild chest discomfort in the left upper chest that lasted about a minute and has been gone since then. Denied any weakness, numbness, headache that is current, vision changes, cough, fever, nausea, vomiting, diarrhea, rash, or any other concerns. Has not missed any doses of her medications including her Eliquis, but did not take her morning dose yet of any of her meds. Denies any prior history of heart attack or heart failure that she knows of. Denies any lung disease such as COPD and does not smoke. Has been vaccinated for COVID. Allergies and Home Medications Allergies Coded Allergies: No Known Drug Allergies (Unverified , 10/16/17) Patient Home Medication List Home Medication List Reviewed: Yes ALPRAZolam (ALPRAZolam) 0.25 Mg Tablet, 0.25-0.5 MG PO HS PRN for SLEEP, (Reported) Entered as Reported by: BOOM JACOBO on 10/22/20 141 Acetaminophen (Tylenol Extra Strength) 500 Mg Tablet, 500-1,000 MG PO Q8H PRN for PAIN-MILD (1-4), (Reported) Entered as Reported by: BOOM JACOBO on 10/22/201417 Apixaban (Eliquis) 5 Mg Tablet, 5 MG PO BID, (Reported) Entered as Reported by: BOOM JACOBO on 10/22/201417 Biotin (Biotin) 5,000 Mcg Tab.subl, 5,000 MCG SL DAILY, (Reported) Entered as Reported by: BOOM JACOBO on 10/22/20 141 Calcium Carb/D3/Magnesium/Zinc (Flazfqb-Uve-Rhrl-Vit D Tablet) 1 Each Tablet, 1 EACH PO DAILY, (Reported) Entered as Reported by: BOOM JACOBO on 10/22/20 141 Cefuroxime Axetil (Cefuroxime) 250 Mg Tablet, 250 MG PO BID Prescribed by: DRU VELEZ on 10/24/20 09 Cholecalciferol (Vitamin D3) (Vitamin D3) 50 Mcg Capsule, 50 MCG PO DAILY, (Reported) Entered as Reported by: BOOM JACOBO on 10/22/20 141 Diltiazem HCl (Diltiazem ER) 120 Mg Capsule.er, 120 MG PO DAILY, (Reported) Entered as Reported by: BOOM JACOBO on 10/22/20 141 Furosemide (Lasix) 20 Mg Tablet, 20 MG PO DAILY Prescribed by: ANGIE JACKSON on 05/30/21 100 Losartan Potassium (Losartan Potassium) 100 Mg Tablet, 100 MG PO DAILY, (Reported) Entered as Reported by: JAY LUNA on 10/16/172110 Lutein (Lutein) 20 Mg Tablet, 20 MG PO BID, (Reported) Entered as Reported by: BOOM JACOBO on 10/22/20 141 Metoprolol Succinate (Metoprolol Succinate) 50 Mg Tab.er.24h, 50 MG PO DAILY Prescribed by: DRU VELEZ on 10/24/20 09 Bronson 3 Polyunsat Fatty Acids (Fish Oil 1,000 mg Capsule) 1,000 Mg Cap, 1,000 MG PO DAILY, (Reported) Entered as Reported by: EDELMIRA LOPEZ on 10/18/17 1012 Potassium Chloride (K-Tab ER) 20 Meq Tablet.er, 20 MEQ PO DAILY Prescribed by: ANGIE JACKSON on 05/30/21 1008 Rosuvastatin Calcium (Rosuvastatin Calcium) 10 Mg Tablet, 10 MG PO HS, (Reported) Entered as Reported by: BOOM JACOBO on 10/22/20 141 Ubidecarenone (Coq-10) 100 Mg Capsule, 100 MG PO DAILY, (Reported) Entered as Reported by: BOOM JACOBO on 10/22/20 141 Vit C/E/Zn/Coppr/Lutein/Zeaxan (Preservision Areds 2 Softgel) 1 Each Capsule, 1 EACH PO BID, (Reported) Entered as Reported by: BOOM JACOBO on 10/22/20 141 Review of Systems Review of Systems Constitutional: No chills, No fever EENTM: No blurred vision Respiratory: No cough; short of breath Cardiovascular: chest pain Gastrointestinal: No abdominal pain, No diarrhea, No nausea, No vomiting Genitourinary: no symptoms reported Musculoskeletal: no symptoms reported Skin: no symptoms reported Psychiatric/Neurological: No Symptoms Reported Hematologic/Lymphatic: No Symptoms Reported Immunological/Allergic: no symptoms reported All Other Systems Reviewed Negative Unless Noted: Yes Past Tpguhep-Xixilf-Jilzpi Hx Patient Social History Tobacco Use?: No Substance use?: No Alcohol Use?: Yes Alcohol Frequency: Once in a while Pt feels they are or have been: No Immunizations Up To Date Influenza Vaccine Up-to-Date: Yes; Up-to-Date First/Initial COVID19 Vaccinat: 2020 Past Medical History Surgeries: Yes (BUNION SX) Hysterectomy Respiratory: No Cardiac: Yes Hypertension Neurological: No Sexually Transmitted Disease: No HIV/AIDS: No Genitourinary: No Gastrointestinal: No Musculoskeletal: Yes Arthritis Endocrine: No HEENT: Yes Cataract Hearing Impairment: Hard of Hearing, Bilateral Hearing Aide Cancer: No Psychosocial: No Integumentary: No Blood Disorders: No Adverse Reaction/Blood Tranf: No Physical Exam Vital Signs Vital Signs - First Documented Capillary Refill : Height, Weight, BMI Height: 5'3.00" Weight: 147lbs. 0.0oz. 66.954472do; 26.6 BMI Method:Stated General Appearance: No Apparent Distress, WD/WN Eyes: Bilateral Eye Normal Inspection HEENT: PERRL/EOMI, Normal ENT Inspection, Pharynx Normal Neck: Full Range of Motion, Normal Inspection, Non Tender, Supple Respiratory: Chest Non Tender, No Accessory Muscle Use, No Respiratory Distress, Other (Had some crackles at the bases which went away with repeat deep breaths) Cardiovascular: Regular Rate, Rhythm, No Edema, Normal Peripheral Pulses Gastrointestinal: Normal Bowel Sounds, Non Tender, Soft Back: Normal Inspection, No CVA Tenderness Extremity: Normal Capillary Refill, Normal Inspection, Normal Range of Motion, Non Tender, No Calf Tenderness, No Pedal Edema Neurologic/Psychiatric: Alert, No Motor/Sensory Deficits, Normal Mood/Affect Skin: Normal Color, Warm/Dry Lymphatic: No Adenopathy Progress/Results/Core Measures Suspected Sepsis SIRS Temperature: Pulse: Respiratory Rate: Laboratory Tests 05/30/21 09:24: White Blood Count 11.8H Blood Pressure / Mean: Laboratory Tests 05/30/21 09:24: Creatinine 0.80, INR Comment 1.2, Platelet Count 346, Total Bilirubin 1.1H Results/Orders Lab Results Laboratory Tests Test 05/30/21 09:24 Range/Units White Blood Count 11.8 H 4.3-11.0 10^3/uL Red Blood Count 5.16 H 3.80-5.11 10^6/uL Hemoglobin 15.0 11.5-16.0 g/dL Hematocrit 45 35-52 % Mean Corpuscular Volume 88 80-99 fL Mean Corpuscular Hemoglobin 29 25-34 pg Mean Corpuscular Hemoglobin Concent 33 32-36 g/dL Red Cell Distribution Width 17.8 H 10.0-14.5 % Platelet Count 346 130-400 10^3/uL Mean Platelet Volume 9.2 9.0-12.2 fL Immature Granulocyte % (Auto) 1 % Neutrophils (%) (Auto) 72 42-75 % Lymphocytes (%) (Auto) 13 12-44 % Monocytes (%) (Auto) 13 H 0-12 % Eosinophils (%) (Auto) 1 0-10 % Basophils (%) (Auto) 0 0-10 % Neutrophils # (Auto) 8.5 H 1.8-7.8 10^3/uL Lymphocytes # (Auto) 1.5 1.0-4.0 10^3/uL Monocytes # (Auto) 1.5 H 0.0-1.0 10^3/uL Eosinophils # (Auto) 0.1 0.0-0.3 10^3/uL Basophils # (Auto) 0.0 0.0-0.1 10^3/uL Immature Granulocyte # (Auto) 0.1 0.0-0.1 10^3/uL Prothrombin Time 15.6 H 12.2-14.7 SEC INR Comment 1.2 0.8-1.4 Activated Partial Thromboplast Time 33 24-35 SEC Sodium Level 138 135-145 MMOL/L Potassium Level 4.0 3.6-5.0 MMOL/L Chloride Level 104 98-107 MMOL/L Carbon Dioxide Level 21 21-32 MMOL/L Anion Gap 13 5-14 MMOL/L Blood Urea Nitrogen 11 7-18 MG/DL Creatinine 0.80 0.60-1.30 MG/DL Estimat Glomerular Filtration Rate 72 BUN/Creatinine Ratio 14 Glucose Level 120 H 70-105 MG/DL Calcium Level 9.6 8.5-10.1 MG/DL Corrected Calcium 9.8 8.5-10.1 MG/DL Magnesium Level 1.7 1.6-2.4 MG/DL Total Bilirubin 1.1 H 0.1-1.0 MG/DL Aspartate Amino Transf (AST/SGOT) 13 5-34 U/L Alanine Aminotransferase (ALT/SGPT) 18 0-55 U/L Alkaline Phosphatase 75 40-136 U/L Troponin I < 0.028 <0.028 NG/ML B-Type Natriuretic Peptide 1022.1 H <100.0 PG/ML Total Protein 7.0 6.4-8.2 GM/DL Albumin 3.7 3.2-4.5 GM/DL My Orders Orders - ANGIE JACKSON MD Cbc With Automated Diff (05/30/21 09:18) Magnesium (05/30/21:18) Chest 1 View, Ap/Pa Only (05/30/21:18) Ekg Tracing (05/30/21:18) Comprehensive Metabolic Panel (05/30/21:18) Protime With Inr (05/30/21:18) Partial Thromboplastin Time (05/30/21:18) O2 (05/30/21:18) Monitor-Rhythm Ecg Trace Only (05/30/21:18) Ed Iv/Invasive Line Start (05/30/21 09:18) Bnp [place] (05/30/21 09:18) Troponin I [place] (05/30/21 09:18) Aspirin Chewable Tablet (Baby Aspirin Ch (05/30/21 09:30) Diltiazem Cd 24 Hr Capsule (Cardizem Cd (05/30/21 09:30) Losartan Tablet (Cozaar Tablet) (05/30/21 09:30) Apixaban Tablet (Eliquis Tablet) (05/30/21 09:30) Furosemide Injection (Lasix Injection) (05/30/21 10:15) Medications Given in ED Current Medications Medications Dose Ordered Sig/Maude Route Start Time Stop Time Status Last Admin Dose Admin Apixaban 5 mg ONCE ONCE PO 05/30/21 09:30 05/30/21 09:31 DC 05/30/21 09:30 5 MG Aspirin 324 mg ONCE ONCE PO 05/30/21 09:30 05/30/21 09:31 DC 05/30/21 09:30 324 MG Diltiazem HCl 240 mg ONCE ONCE PO 05/30/21 09:30 05/30/21 09:31 DC 05/30/21 09:37 240 MG Losartan Potassium 100 mg ONCE ONCE PO 05/30/21 09:30 05/30/21 09:31 DC 05/30/21 09:37 100 MG Vital Signs/I&O 05/30/21 05/30/21 05/30/21 05/30/21 09:12 09:12 09:25 09:55 Temp 36.1 Pulse 96 107 Resp 25 12 B/P (MAP) 172/105 (127) 174/111 Pulse Ox 96 96 95 O2 Delivery Nasal Cannula Nasal Cannula Nasal Cannula Nasal Cannula O2 Flow Rate 2.00 2.00 2.00 2.00 Capillary Refill : Progress Note : Progress Note 85-year-old female with above history coming in feeling short of breath and just "off". The patient's oxygen was 91% on arrival so she was placed on 2 L via nasal cannula. She was in A. fib with intermittent RVR with rates between the 90s to 120s. She has not had her daily medicines so I gave her her calcium channel kaleb as well as her blood thinner. She did have some crackles on exam and chest x-ray which appeared like volume overload and a slightly enlarged cardiac border. BNP 1000 and troponin is negative. I suspect this is related to undiagnosed heart failure. I gave the patient IV Lasix 20 mg since she is kuldeep to this. I offered her admission to the hospital for echo, cardiology consult, and further evaluation. 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 She is alert and oriented, she has capacity at this time to make this decision and is able to voice to me the pros and cons of staying versus leaving. I wrote for home Lasix with potassium and told her she is to follow-up with her regular doctor as soon as possible and get an outpatient echo. I told her she is welcome to come back to the ER anytime for repeat evaluation. She was then discharged home with strict return precautions. ECG Initial ECG Impression Date: May 30, 2021 Initial ECG Impression Time: 09:11 Initial ECG Rate: 123 Initial ECG Rhythm: A Fib/Flutter Comment Wide QRS with a left bundle branch block, no significant ST changes accounting for that, appears similar to prior EKG Diagnostic Imaging Diagonstic Imaging: Xray Plain Films/CT/US/NM/MRI: chest Comments [facility]. [place], [place] NAME: SONU BARCLAY [facility] REC#: [id number] PT STATUS: REG ER : 1935 PHYSICIAN: ANGIE JACKSON MD ADMIT DATE: 05/30/21/ER Draft Date of Exam:05/30/21 CHEST 1 VIEW, AP/PA ONLY INDICATION: Woke up with chest pain around pacemaker site swelling. Feeling weird along with shortness of breath when lying flat. TECHNIQUE: Single view chest 9:22 AM. CORRELATION STUDY: 10/23/2020 FINDINGS: Left-sided dual-chamber pacemaker remains in place. Overall configuration appears stable with lead positioning unchanged. Unchanged cardiac enlargement. Vasculature is slightly increased more prominent from prior. Additionally, there is mildly prominent interstitial markings. Lung morales demonstrate no consolidating infiltrate. No significant effusion or pneumothorax. IMPRESSION: 1. Stable appearance left-sided pacemaker. 2. Cardiac enlargement with development of pulmonary vascular congestion along with mild interstitial edema does suggest mild fluid overload/failure. Dictated on workstation # [id number] Dict: 05/30/21 0941 Trans: 05/30/21 0945 [id number] Interpreted by: ACACIA LEES DO Electronically signed by: Departure Impression Primary Impression: Atrial fibrillation with RVR Additional Impressions: Dyspnea Qualified Codes: R06.01 - Orthopnea Volume overload Qualified Codes: E87.70 - Fluid overload, unspecified Disposition: 01 HOME, SELF-CARE Condition: Stable Departure-Patient Inst. Decision time for Depature: 10:15 Referrals: NO,LOCAL PHYSICIAN (PCP) Primary Care Physician PADMINI DURAN APRN (Family) Primary Care Physician Patient Instructions: Atrial Fibrillation (DC), Heart Failure ED Add. Discharge Instructions: You were seen in the emergency department because you are feeling slightly off and short of breath. You are in A. fib and your heart rate is fast which can make you feel this way. You also appear to have too much fluid on your lungs on your chest Xray which typically is related to heart failure. I wrote a prescription for a water pill called Lasix which you will take daily and will help you to urinate the extra fluid off. This lowers your potassium so you will need to also take the potassium supplement I wrote for you. Please follow-up with your regular doctor within the next week to see if they want to continue these medicines. You also need to have an echocardiogram of your heart done as soon as possible. If you begin feeling more short of breath or have severe chest pain please immediately come back to the ER. Scripts Potassium Chloride (K-Tab ER) 20 Meq Tablet.er 20 MEQ PO DAILY for 14 Days, #14 TAB Prov: ANGIE JACKSON MD 05/30/21 Furosemide (Lasix) 20 Mg Tablet 20 MG PO DAILY for 14 Days, #14 TAB Prov: ANGIE JACKSON MD 05/30/21 ANGIE JACKSON MD May 30, 2021 09:25
[2021-05-30] MEDS ORDERED: APIXABAN 5 MG (ELIQUIS) TABLET PO ONE (09:30)
[2021-05-30] MEDS ORDERED: ASPIRIN 81 MG CHEW (CHILDREN'S ASA) PO ONE (09:30)
[2021-05-30] MEDS ORDERED: LOSARTAN 100 MG (COZAAR) TABLET PO ONE (09:30)
[2021-05-30 09:31] LABS: BASOPHILS % (AUTO) 0 % (0-10); EOSINOPHILS # (AUTO) 0.1 10^3/uL (0.0-0.3); EOSINOPHILS % (AUTO) 1 % (0-10); HEMATOCRIT 45 % (35-52); LYMPHOCYTES # (AUTO) 1.5 10^3/uL (1.0-4.0); LYMPHOCYTES % (AUTO) 13 % (12-44); MEAN CORPUSCULAR HEMOGLOBIN 29 pg (25-34); MEAN CORPUSCULAR HGB CONC 33 g/dL (32-36); MEAN CORPUSCULAR VOLUME 88 fL (80-99); MEAN PLATELET VOLUME 9.2 fL (9.0-12.2); MONOCYTES # (AUTO) 1.5 10^3/uL (0.0-1.0); MONOCYTES % (AUTO) 13 % (0-12); NEUTROPHILS # (AUTO) 8.5 10^3/uL (1.8-7.8); NEUTROPHILS % (AUTO) 72 % (42-75); PLATELET COUNT 346 10^3/uL (130-400); WHITE BLOOD COUNT 11.8 10^3/uL (4.3-11.0)
--- NOTE | 2021-05-30 09:45 | Diagnostic Imaging Report ---
INDICATION: Woke up with chest pain around pacemaker site swelling. Feeling weird along with shortness of breath when lying flat. TECHNIQUE: Single view chest 9:22 AM. CORRELATION STUDY: 10/23/2020 FINDINGS: Left-sided dual-chamber pacemaker remains in place. Overall configuration appears stable with lead positioning unchanged. Unchanged cardiac enlargement. Vasculature is slightly increased more prominent from prior. Additionally, there is mildly prominent interstitial markings. Lung morales demonstrate no consolidating infiltrate. No significant effusion or pneumothorax. IMPRESSION: 1. Stable appearance left-sided pacemaker. 2. Cardiac enlargement with development of pulmonary vascular congestion along with mild interstitial edema does suggest mild fluid overload/failure. Dictated by: Dictated on workstation # [id number]
[2021-05-30 09:51] LABS: ALBUMIN 3.7 GM/DL (3.2-4.5)
[2021-05-30 09:52] LABS: CALCIUM 9.6 MG/DL (8.5-10.1)
[2021-05-30 09:55] LABS: BILIRUBIN,TOTAL 1.1 MG/DL (0.1-1.0)
[2021-05-30 09:56] LABS: INR 1.2 (0.8-1.4); PROTHROMBIN TIME PATIENT 15.6 SEC (12.2-14.7)
[2021-05-30 09:57] LABS: CREATININE SERUM 0.8 MG/DL (0.60-1.30)
[2021-05-30 10:00] LABS: MAGNESIUM 1.7 MG/DL (1.6-2.4)
[2021-05-30] MEDS ORDERED: FURO-125 PO (10:08)
[2021-05-30] MEDS ORDERED: POTA-53 PO (10:08)
[2021-05-30] MEDS ORDERED: FUROSEMIDE 40 MG/4 ML INJ (LASIX) IVP ONE (10:15)
[2021-05-30 10:33] VITALS: BP 146/91
== END 2021-05-30 10:31 | disposition home or self-care (01) ==
LOC: EDUNIT# 09:01 → ER 09:03
DX: I48.20 Chronic atrial fibrillation, unspecified (principal); R06.00 Dyspnea, unspecified; E87.70 Fluid overload, unspecified; I10 Essential (primary) hypertension; Z79.01 Long term (current) use of anticoagulants
CPT/HCPCS: 36415; 71045; 80053; 83735; 83880; 84484; 85025; 85610; 85730; 93005; 93041

== ENCOUNTER → 2021-06-09 | Outpatient (CLI) | payer MEDICARE ==
[~2021-06-09] MED LIST changes: +FURO-125 PO; +POTA-53 PO
== END ==
LOC: CARD 11:30
PROVIDERS: ATTEND Internal Medicine Cardiovascular Disease
DX: I11.9 Hypertensive heart disease without heart failure (principal); I08.3 Combined rheumatic disorders of mitral, aortic and tricuspid valves; I25.10 Atherosclerotic heart disease of native coronary artery without angina pectoris
CPT/HCPCS: 93306

== ENCOUNTER 2021-07-09 10:30 | Day surgery (SDC) | payer MEDICARE ==
[~2021-07-09] VITALS: Ht 162.6 cm; Wt 63.3 kg
[2021-07-09] VITALS (15 sets, daily range): BP systolic 151–178; BP diastolic 82–104
[2021-07-09 09:05] LABS: HEMATOCRIT 46 % (35-52); HEMOGLOBIN 15.1 g/dL (11.5-16.0); MEAN CORPUSCULAR HEMOGLOBIN 31 pg (25-34); MEAN CORPUSCULAR HGB CONC 33 g/dL (32-36); MEAN CORPUSCULAR VOLUME 93 fL (80-99); MEAN PLATELET VOLUME 9.4 fL (9.0-12.2); PLATELET COUNT 306 10^3/uL (130-400); WHITE BLOOD COUNT 8.9 10^3/uL (4.3-11.0)
[2021-07-09 09:09] LABS: BILIRUBIN,URINE NEGATIVE (NEGATIVE); CLARITY,URINE CLEAR; COLOR,URINE YELLOW; GLUCOSE, URINE (UA) NEGATIVE (NEGATIVE); KETONES,URINE NEGATIVE (NEGATIVE); LEUKOCYTE ESTERASE ,URINE NEGATIVE (NEGATIVE); NITRITE,URINE NEGATIVE (NEGATIVE); PH,URINE 6.5 (5-9); PROTEIN,URINE NEGATIVE (NEGATIVE)
--- NOTE | 2021-07-09 09:13 | Diagnostic Imaging Report ---
INDICATION: Preop for transesophageal echo and cardioversion. TIME OF EXAM: 8:54 AM. COMPARISON: Correlation is made with the prior chest of 05/30/2021. FINDINGS: The heart is enlarged but stable. The cardiac pacemaker remains in place. The lungs are clear. No infiltrate or failure is detected. No effusion or pneumothorax is identified. IMPRESSION: Cardiomegaly. No acute feature is detected. Dictated by: Dictated on workstation # [id number]
[2021-07-09 09:27] LABS: INR 1.2 (0.8-1.4); PROTHROMBIN TIME PATIENT 15.2 SEC (12.2-14.7)
[2021-07-09 09:28] LABS: ALBUMIN 3.6 GM/DL (3.2-4.5); BILIRUBIN,TOTAL 0.8 MG/DL (0.1-1.0); CALCIUM 9.2 MG/DL (8.5-10.1); TOTAL PROTEIN 6.1 GM/DL (6.4-8.2)
[2021-07-09 09:40] LABS: BACTERIA,URINE NEGATIVE /HPF
[~2021-07-09 10:30] MED LIST changes: +AMIO200T65 PO; +BIOT5TAB PO; +BISA-65 PO; +CYAN-41 PO; +DILT240C91 PO; +LIDOCAINE 2% VISCOUS 15 ML UDC ONE; +MELA3TAB39 PO; +MTP100TCR PO; +NS IV 1000 ML 1,000 ML IV SCH; +NS IV 1000 ML 1,000 ML ONE; +proPOfol 200 MG/20 ML (DIPRIVAN) VIAL IV ONE
[2021-07-09] MEDS ORDERED: LIDOCAINE 2% VISCOUS 15 ML UDC PO ONE (10:45)
--- NOTE | 2021-07-09 11:22 | Anesthesia-General Post-Op ---
MAC Patient Condition Mental Status/LOC: Same as Preop Cardiovascular: Satisfactory Nausea/Vomiting: Absent Respiratory: Satisfactory Pain: Controlled Complications: Absent Post Op Complications Complications None Follow Up Care/Instructions Patient Instructions None needed. Anesthesiology Discharge Order Discharge Order Patient is doing well, no complaints, stable vital signs, no apparent adverse anesthesia problems. No complications reported per nursing. STEVE CLEMENTS CRNA Jul 09, 2021 11:22
--- NOTE | 2021-07-09 11:26 | Conscious Sedation/ASA ---
Conscious Sedation Pre-Proced Time 11:26 ASA Score 3 For ASA 3 and 4: Consider anesthesia and medical clearance. Also, for patients with a history of failed moderate sedation consider anesthesia. Airway Lungs Heart ASA score ASA 1: a normal healthy patient ASA 2: a patient with a mild systemic disease (mid diabetes, controlled hypertension, obesity x ASA 3: a patient with a severe systemic disease that limits activity (angina, COPD, prior Myocardial infarction) ASA 4: a patient with an incapacitating disease that is a constant threat to life (CHF, renal failure) ASA 5: a moribund patient not expected to survive 24 hrs. (ruptured aneurysm) ASA 6: a declared brain- patient whose organs are being harvested. For emergent operations, add the letter E after the classification Mallampati Classification Grade 3 Sedation Plan Analgesia, Amnesia, Plan communicated to team members, Discussed options with patient/fam, Discussed risks with patient/fam The patient is an appropriate candidate to undergo the planned procedure, sedation, and anesthesia. The patient immediately re-assessed prior to indication. DRU VELEZ MD Jul 09, 2021 11:26
--- NOTE | 2021-07-09 11:27 | Cardioversion ---
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 Electrical cardioversion was carried out with anesthesia support with propofol. 200 joules of synchronized shock was delivered through external patches which promptly restored sinus rhythm. The patient tolerated the procedure well. Conclusions: Successful electrical cardioversion in terminating atrial fibrillation Final Diagnosis: Paroxysmal atrial fibrillation Sinus node dysfunction Severe mitral regurgitation Permanent pacemaker DRU TEJEDA MD Jul 09, 2021 11:27
--- NOTE | 2021-07-09 13:18 | Discharge Inst-Post CATH ---
Discharge Inst-CATH/EP Problems Reviewed?: Yes Post Cardiac Cath/EP D/C Inst Follow Up/Plan Appointment with Dr. Tejeda's office in 2-4 weeks <b>CARDIAC CATH/EP PROCEDURE DISCHARGE INSTRUCTIONS</b> ACTIVITY * Go Home directly and rest. * Limit activity of the leg (or wrist if it was used) for 7 days including aerobics, swimming, jogging, bicycling, etc. * Restrict stair-climbing for 7 days if possible, if not, climb up with your non-cath leg, then bring together on the same step. * Avoid lifting, pushing, pulling or excessive movement of the affected extremity for 7 days. * Customary sexual activity may be resumed after 2 days-use caution not to use a position that strains or causes pain to the affected extremity. * No driving for 24 hours. * NO SMOKING. * Avoid straining for bowel movements for 7 days. * Gentle walking on level ground is allowed. * Returning to work will depend on the type of procedure and the results. Your doctor will discuss this with you. CALL YOUR DOCTOR FOR ANY OF THE FOLLOWING: *If bleeding from the puncture site occurs- Apply gentle pressure to site with clean cloth and call your doctor or EMS. * If a knot or lump forms under the skin, increases in size, or causes pain. * If bruising appears to be worsening or moving further down your leg instead of disappearing. * Temperature above 101 F. CARE OF YOUR GROIN INCISION; * Bruising or purple discoloration of the skin near the puncture site is common. * You may shower only, no bathtub bathing for 5 days. Be careful to avoid slipping as your leg may feel stiff. * If a closure device was used on your femoral artery, please see the attached guide regarding care of the device and your leg. * Leave dressing on FOR 24 hours. CARE OF YOUR WRIST INCISION; * Bruising or purple discoloration of the skin near the puncture site is common. * You may shower. * DO NOT submerge wrist. * Leave dressing on FOR 24 hours. DRU TEJEDA MD Jul 09, 2021 13:18
[2021-07-09] MEDS ORDERED: LOSARTAN 100 MG (COZAAR) TABLET PO SCH (13:30)
[2021-07-09] MEDS ORDERED: AMIODARONE 200 MG (CORDARONE) TAB PO SCH (13:30)
[2021-07-09] MEDS ORDERED: APIXABAN 5 MG (ELIQUIS) TABLET PO SCH ×2 (13:30→21:00)
[2021-07-10] MEDS ORDERED: LOSARTAN 100 MG (COZAAR) TABLET PO SCH (09:00)
[2021-07-10] MEDS ORDERED: AMIODARONE 200 MG (CORDARONE) TAB PO SCH (09:00)
== END 2021-07-09 14:30 | disposition home or self-care (01) ==
LOC: CATH 10:30 → SDC 11:57 → CATH 14:30
PROVIDERS: ATTEND Internal Medicine Cardiovascular Disease
DX: I48.0 Paroxysmal atrial fibrillation (principal); I49.5 Sick sinus syndrome; I48.19 Other persistent atrial fibrillation; I34.0 Nonrheumatic mitral (valve) insufficiency; I11.0 Hypertensive heart disease with heart failure; I50.32 Chronic diastolic (congestive) heart failure; I65.23 Occlusion and stenosis of bilateral carotid arteries; E78.2 Mixed hyperlipidemia; Z79.899 Other long term (current) drug therapy; Z95.0 Presence of cardiac pacemaker
CPT/HCPCS: 36415; 71045; 80053; 80061; 81000; 85027; 85610; 85730; 87081; 92960; 93005; 93312

== ENCOUNTER → 2022-04-27 | Outpatient (CLI) | payer MEDICARE ==
[~2022-04-27] MED LIST changes: -LIDOCAINE 2% VISCOUS 15 ML UDC ONE; -NS IV 1000 ML 1,000 ML IV SCH; -NS IV 1000 ML 1,000 ML ONE; -proPOfol 200 MG/20 ML (DIPRIVAN) VIAL IV ONE
== END ==
LOC: CARD 14:13
PROVIDERS: ATTEND Internal Medicine Cardiovascular Disease
DX: I11.9 Hypertensive heart disease without heart failure (principal); I08.3 Combined rheumatic disorders of mitral, aortic and tricuspid valves
CPT/HCPCS: 93306